=== PATIENT | female | born 1975 | race Caucasian/White ===

== ENCOUNTER 2018-03-09 15:48 | Emergency (ER) | payer MEDICAID ==
[~2018-03-09] VITALS: Ht 157.5 cm; Wt 92.5 kg
[2018-03-09 16:03] VITALS: BP 145/86; Ht 157.5 cm; Wt 92.5 kg
== END 2018-03-09 17:29 | disposition home or self-care (01) ==
LOC: ED 15:48
DX: N30.01 Acute cystitis with hematuria (principal); E66.9 Obesity, unspecified; R11.0 Nausea
CPT/HCPCS: J0696; J1885; J2001